=== PATIENT | female | born 1960 | race Caucasian/White ===

== ENCOUNTER 2022-10-14 08:35 | Outpatient (CLI) | payer OTHER, SELFPAY | END 2022-10-14 08:36 | disposition home or self-care (01) | LOC: NFLDREF 11:31 | PROVIDERS: PCP Internal Medicine; Referring Provider Internal Medicine; Visit Provider Internal Medicine | DX: I10 Essential (primary) hypertension (principal); E66.01 Morbid (severe) obesity due to excess calories; Z13.6 Encounter for screening for cardiovascular disorders | CPT/HCPCS: 80048; 80061 ==

== ENCOUNTER 2022-12-24 15:04 | Outpatient (CLI) | payer OTHER, SELFPAY ==
--- NOTE | 2022-12-24 15:20 | CRLHL7_ITS ---
For Patients: As a result of the Century Cures Act, medical imaging exams and procedure reports are released immediately into your electronic medical record. You may view this report before your referring provider. If you have questions, please contact your health care provider. BILATERAL SCREENING MAMMOGRAM WITH COMPUTER-AIDED DETECTION AND TOMOSYNTHESIS TECHNIQUE: CC and MLO views were obtained. These mammographic images have been obtained using full-field digital technique. These mammographic images were interpreted with the benefit of computer-aided detection. Breast Tomosynthesis was used in this interpretation. COMPARISON FILM: 08/28/15, 05/22/14. FINDINGS: The breasts are heterogeneously dense, which may obscure small masses IMPRESSION: There is no radiographic evidence for malignancy. ASSESSMENT: BI-RADS Category 1: Negative RECOMMENDATION: Routine screening mammogram in 1 year. A lay language report of this examination will be provided to the patient. Leobardo Méndez M.D. Diagnostic Radiologist [email or web address] Transcribed: 1:43 pm DW/Dictated by: Loebardo Méndez MD @ 12/25/2022 12:26:00 PM (Electronically Signed)
== END 2022-12-24 15:05 | disposition home or self-care (01) ==
LOC: MAMMO 15:05
PROVIDERS: PCP Internal Medicine; Visit Provider Internal Medicine
DX: Z12.31 Encounter for screening mammogram for malignant neoplasm of breast (principal); R92.2 Inconclusive mammogram
CPT/HCPCS: 77063; 77067

== ENCOUNTER 2022-12-31 13:45 | Outpatient (RCR) | payer OTHER, SELFPAY ==
--- NOTE | 2022-11-17 16:42 | PT.OPEX ---
Please sign the attached physical therapy evaluation completed on 11/17/22. Thank you. PT [place] [facility] Eval PT [facility] Outpatient Eval Start: 11/12/22 10:17 Freq: Status: Active Protocol: Document 11/17/22 11:20 TLQ (Rec: 11/17/22 14:44 TLQ [id number]) E-signed By Kelly Callahan DPT Physical Therapy Outpatient Evaluation Insurance Information Insurance Name [employer] [facility] Diagnosis Bilateral primary osteoarthritis of hip (M16.0) Treating Diagnosis Pain in left hip (M25.552) Pain in right hip (M25.551) Stiffness of right hip (M25. 651) Muscle weakness (M62.81) Referring MD Patricia Abbott MD Subjective Subjective Patient has been having bilateral hip pain for the past 7 years or so, right hip bothers her more than the left . States she walks a little lopsided, fell off a horse years ago which caused a curve in her spine, also has a previous ankle fracture on the right side which can sometimes result in her not bearing as much weight through it. Symptoms worsen with lifting, pulling, and bending. Navigates stairs using a step to pattern with her left foot leading, only has a few steps to get into her house from the garage. Notices she feels stiff when first standing up and walking after sitting down . Sometimes has some difficulty falling asleep, uses a CPAP so may not be entirely related to her hip pain. Has found some pain relief with use of Aleve. Goes to [facility] to use the pool , feels like she walks better when she leaves. Has considered getting shoe inserts. X-[facility] taken at [facility] on 10/16/22 with the following impression: Severe degenerative joint disease right hip. Moderately severe degenerative joint disease left hip. Pain Comments 2/10 average location: bilateral hips, R>L ease factors: Aleve aggravating factors: lifting, bending Current Work Status Retired Preferred Name Anusha Precautions Therapy Limitations/Systems Review Not Limited Objective Other/Pertinent Objective Trunk AROM: WFL with exception of lumbar extension Hip ROM: limited IR on the R Core/trunk strength: 4 flexion , 4+ extension Lower extremity strength: Hip: flexion L 4, R 4 mild pain extension L 4, R 4 abduction 4 B adduction 4+ B internal rotation L 4+, R 4 external rotation L 4-, R 4- mild pain TTP: R>L glute med/piriformis Joint mobility: hypomobility on R Gait: Trendelenburg, slower malia Special tests: DANNY (+) mobility restriction on L, mobility restriction and pain on R Manual LE distraction (+) positive response on R Supine to sit test: R anterior innominate rotation, corrected with MET Posture: increased lumbar lordosis Functional Test Performed & Score LEFS: score 43/80 (left 1 blank) (MCID 9 points) Assessment Assessment/Impression Patient is a 62 year old female who presents to outpatient physical therapy today to address bilateral hip pain related to osteoarthritic changes in her joints. Pain is more prominent in her right hip and limits her ability to complete bending, lifting, or carrying tasks. Pain is also present when navigating stairs, uses a step to pattern with her left leg used as the strong/ support leg. Mild core weakness and bilateral hip weakness present with strength testing. Hip mobility restrictions present with DANNY testing bilaterally, limited in internal rotation on the right. Postural observations included increased lumbar lordosis and LLD with right leg longer in supine, LLD was corrected using MET. Patient found partial relief with manual distraction of the right lower extremity. Muscle tightness present in the bilateral glute medius and piriformis muscles , tenderness improved with skilled STM/Tpr, patient was instructed through how to simulate this at home with use of a tennis ball while standing at the wall. Patient had a positive symptom response to initial interventions completed during today's evaluation. Patient attends the local senior center to complete aquatic exercises multiple times per week. She is expected to benefit from skilled interventions of manual therapy, therapeutic exercise, therapeutic activity, neuromuscular re-education, and gait training to reduce pain and meet her goals as outlined below. Primary Functional Limitations R hip mobility, core weakness, hip weakness, gait, stair navigation, bending, lifting/ carrying Plan of Care Rehabilitation Potential Good Physical Therapy Goals In 4-5 visits: - Patient will demonstrate ability to lift a 5# object and carry it 10 feet without symptom provocation. - Patient will adhere to her HEP in order to progress strength and mobility interventions. In 8-10 visits: - LEFS score will improve to > 52/80 (MCID 9 points) to demonstrate functional improvements daily mobility. - Patient will navigate 2 steps using a reciprocal pattern for improved stair navigation in/out of her house /garage. - Patient will demonstrate proper lifting mechanics to lift a 10# object and carry it 20 feet without symptom provocation. Treatment Plan/Direct Interventions Gait Training,Manual Therapy, Neuromuscular Re-ed,Self-Care/ Home Management,Therapeutic Activities,Therapeutic Exercises Frequency/Duration 1x/week for 8-10 weeks Patient Will Be Discharged From Therapy Completion of LTG(s),Skills Plateau,Independent w/HEP, Independently Progressing Evaluation Billing Untimed Code Treatment Minutes 35 Complexity Low Certification Information Provider Signature Shows Agreement With POC & Medical Necessity Physician Signature & Date Requested Please Sign/Date Here Physician Comment/Change : Physician NPI Number #
== END 2023-02-18 16:13 | disposition home or self-care (01) ==
PROVIDERS: PCP Internal Medicine; Visit Provider Internal Medicine
DX: M16.0 Bilateral primary osteoarthritis of hip (principal); Z51.89 Encounter for other specified aftercare
CPT/HCPCS: 97110; 97140; 97161

== ENCOUNTER 2024-05-04 08:19 | Outpatient (CLI) | payer MEDICARE, SELFPAY ==
[2024-05-06 01:55] LABS: HPV Source Cervical/Vag; HPV, High Risk by TMA Not Detected
== END 2024-05-04 08:20 | disposition home or self-care (01) ==
PROVIDERS: PCP Family Medicine; Visit Provider Family Medicine
DX: E78.5 Hyperlipidemia, unspecified (principal); I10 Essential (primary) hypertension; Z13.29 Encounter for screening for other suspected endocrine disorder; Z12.4 Encounter for screening for malignant neoplasm of cervix
CPT/HCPCS: 80053; 80061; 84443; 87624; 87625; 88141; 88142

== ENCOUNTER 2024-06-13 12:53 | Outpatient (CLI) | payer MEDICARE, SELFPAY ==
[2024-06-13 08:14] VITALS: BMI 43.2
== END 2024-06-13 12:54 | disposition home or self-care (01) ==
LOC: NUTRITION 12:54
PROVIDERS: PCP Family Medicine; Visit Provider Dietitian, Registered
DX: E66.9 Obesity, unspecified (principal); Z71.3 Dietary counseling and surveillance
CPT/HCPCS: G0463

== ENCOUNTER 2024-06-20 08:17 | Outpatient (CLI) | payer MEDICARE, SELFPAY ==
[2024-06-20 08:07] VITALS: BMI 42.9
== END 2024-06-20 08:18 | disposition home or self-care (01) ==
LOC: NUTRITION 08:19
PROVIDERS: PCP Family Medicine; Visit Provider Dietitian, Registered
DX: E66.9 Obesity, unspecified (principal); Z68.41 Body mass index [BMI] 40.0-44.9, adult; Z71.3 Dietary counseling and surveillance
CPT/HCPCS: G0463

== ENCOUNTER 2024-06-27 13:22 | Outpatient (CLI) | payer MEDICARE, SELFPAY ==
[2024-06-27 11:56] VITALS: BMI 42.3
== END 2024-06-27 13:23 | disposition home or self-care (01) ==
LOC: NUTRITION 13:22
PROVIDERS: PCP Family Medicine; Visit Provider Dietitian, Registered
DX: E66.9 Obesity, unspecified (principal); Z71.3 Dietary counseling and surveillance
CPT/HCPCS: G0463

== ENCOUNTER 2024-07-04 09:05 | Outpatient (CLI) | payer MEDICARE, SELFPAY ==
[2024-07-04 08:13] VITALS: BMI 42.3
== END 2024-07-04 09:06 | disposition home or self-care (01) ==
LOC: NUTRITION 09:05
PROVIDERS: PCP Family Medicine; Visit Provider Dietitian, Registered
DX: E66.9 Obesity, unspecified (principal); Z68.41 Body mass index [BMI] 40.0-44.9, adult; Z71.3 Dietary counseling and surveillance
CPT/HCPCS: G0463

== ENCOUNTER 2024-07-18 13:41 | Outpatient (CLI) | payer MEDICARE, SELFPAY ==
[2024-07-18 12:49] VITALS: BMI 42.2
== END 2024-07-18 13:42 | disposition home or self-care (01) ==
LOC: NUTRITION 13:41
PROVIDERS: PCP Family Medicine; Visit Provider Dietitian, Registered
DX: E66.9 Obesity, unspecified (principal); Z68.41 Body mass index [BMI] 40.0-44.9, adult; Z71.3 Dietary counseling and surveillance
CPT/HCPCS: G0463

== ENCOUNTER 2024-08-01 10:04 | Outpatient (CLI) | payer MEDICARE, SELFPAY ==
[2024-08-01 08:49] VITALS: BMI 41.2
== END 2024-08-01 10:05 | disposition home or self-care (01) ==
LOC: NUTRITION 10:04
PROVIDERS: PCP Family Medicine; Visit Provider Dietitian, Registered
DX: E66.9 Obesity, unspecified (principal); Z68.41 Body mass index [BMI] 40.0-44.9, adult; Z71.3 Dietary counseling and surveillance
CPT/HCPCS: G0463

== ENCOUNTER 2024-08-10 13:51 | Outpatient (CLI) | payer MEDICARE, SELFPAY ==
--- NOTE | 2024-08-10 14:00 | CRLHL7_ITS ---
For Patients: As a result of the Century Cures Act, medical imaging exams and procedure reports are released immediately into your electronic medical record. You may view this report before your referring provider. If you have questions, please contact your health care provider. DXA BONE MINERAL DENSITY STUDY Current height (in): 66. Weight (lb): 253. Menopause age: 43. Ethnicity: White. 1. Have you had a previous hip or vertebral fracture? Yes. 2. Have you had any fractures during your adult life which did not result from significant trauma (e.g., auto accident)? Yes. 3. Did either of your parents have a hip fracture? No. 4. Do you smoke? No. 5. Have you ever taken Glucocorticoids? No. 6. Do you have rheumatoid arthritis? Yes. 7. Do you have secondary osteoporosis? No. 8. Do you drink 3 or more alcoholic drinks per day? No. 9. Are you being treated for osteoporosis? No. 10. Have you ever taken any of the following medications: Actonel, Evista, Fosamax, Miacalcin, Reclast, Boniva, Forteo, HRT (i.e. estrogen/hormone therapy), Protelos, Prolia, Vitamin D, Calcium, other ??? please specify. No. 11. Do you have any of the following medical conditions: Anorexia or bulimia, asthma or emphysema, end stage renal disease, hyperparathyroidism, any seizure disorders, cancer, inflammatory bowel diseases, hysterectomy, other ??? please specify. No. 12. What was your maximum height (inches)? 66. 13. Do you perform weight bearing exercise regularly? Yes. 14. Do you regularly consume dairy products? Yes. 15. Do you drink caffeinated beverages? No. 16. At what age did your period start? 10. 17. Are you premenopausal? No. 18. How many full term pregnancies have you had? 0. 19. Have you ever missed your period for more than 6 months in a row (not including or menopause)? No. TECHNIQUE: Bone mineral density study was performed using the [employer]. FINDINGS: The results of the study expressed as bone mineral density (BMD) are as follows: Lumbar spine L1 to L4: BMD: 1.226 g/cm2. T-score: 1.6. Z-score: 3.5. Neck Left: BMD: 0.874 g/cm2. T-score: 0.2. Z-score: 1.8. Right: BMD: 0.819 g/cm2. T-score: -0.3. Z-score: 1.3. Total Left: BMD: 1.025 g/cm2. T-score: 0.7. Z-score: 2.0. Right: BMD: 0.980 g/cm2. T-score: 0.3. Z-score: 1.6. IMPRESSION: Normal bone density. Haris Valenzuela M.D. Diagnostic Radiologist [email or web address] SELENA/chris / DW/Dictated by: Haris Valenzuela MD @ 08/14/2024 7:37:00 AM (Electronically Signed)
--- NOTE | 2024-08-10 14:40 | CRLHL7_ITS ---
For Patients: As a result of the Century Cures Act, medical imaging exams and procedure reports are released immediately into your electronic medical record. You may view this report before your referring provider. If you have questions, please contact your health care provider. BILATERAL SCREENING MAMMOGRAM WITH COMPUTER-AIDED DETECTION AND TOMOSYNTHESIS TECHNIQUE: CC and MLO views were obtained. These mammographic images have been obtained using full-field digital technique. These mammographic images were interpreted with the benefit of computer-aided detection. Breast Tomosynthesis was used in this interpretation. COMPARISON FILM: 12/24/22, 08/28/15. FINDINGS: There are scattered areas of fibroglandular density. IMPRESSION: There is no radiographic evidence for malignancy. ASSESSMENT: BI-RADS Category 2: Benign RECOMMENDATION: Routine screening mammogram in 1 year. A lay language report of this examination will be provided to the patient. Leobardo Méndez M.D. Diagnostic Radiologist [email or web address] SP/Dictated by: Leobardo Méndez MD @ 08/16/2024 12:52:00 PM (Electronically Signed)
== END 2024-08-10 13:52 | disposition home or self-care (01) ==
LOC: RAD 13:52
PROVIDERS: PCP Family Medicine; Visit Provider Family Medicine
DX: Z12.31 Encounter for screening mammogram for malignant neoplasm of breast (principal); Z78.0 Asymptomatic menopausal state
CPT/HCPCS: 77063; 77067; 77080

== ENCOUNTER 2024-08-11 11:21 | Outpatient (CLI) | payer MEDICARE, SELFPAY ==
--- NOTE | 2024-08-11 13:03 | P.ANES_ITS ---
Anesthesia Charges Start Date/Time Anesthesia Start Date: 08/11/24 Anesthesia Start Time: 12:04 Stop Date/Time Anesthesia Stop Date: 08/11/24 Anesthesia Stop Time: 13:00 Coding CPT Codes CPT Codes: ANES LWR INTST NDSC NOS - 07455 ([id number]) P2 - PATIENT W/MILD SYST DISEASE, QZ - FREIGHT SOLICITOR SVC W/O RHIA BY
--- NOTE | 2024-08-11 13:03 | W.ANESCHARGE ---
Anesthesia Charges Start Date/Time Anesthesia Start Date: 08/11/24 Anesthesia Start Time: 12:04 Stop Date/Time Anesthesia Stop Date: 08/11/24 Anesthesia Stop Time: 13:00 Coding CPT Codes CPT Codes: ANES LWR INTST NDSC NOS - 98289 ([id number]) P2 - PATIENT W/MILD SYST DISEASE, QZ - BENCH WORKER APPRENTICE SVC W/O THREAD WINDER BY
== END 2024-08-11 11:22 | disposition home or self-care (01) ==
LOC: OP CLINIC 11:22
PROVIDERS: PCP Family Medicine; Visit Provider Surgery
DX: Z12.11 Encounter for screening for malignant neoplasm of colon (principal); D12.8 Benign neoplasm of rectum; Z83.719 Family history of colon polyps, unspecified
CPT/HCPCS: 00811; 45385; 88305; J2704

== ENCOUNTER 2024-09-19 13:07 | Outpatient (CLI) | payer MEDICARE, SELFPAY ==
[2024-09-19 07:20] VITALS: BMI 40.8
== END 2024-09-19 13:08 | disposition home or self-care (01) ==
LOC: NUTRITION 13:07
PROVIDERS: PCP Family Medicine; Visit Provider Dietitian, Registered
DX: E66.9 Obesity, unspecified (principal); Z68.41 Body mass index [BMI] 40.0-44.9, adult; Z71.3 Dietary counseling and surveillance
CPT/HCPCS: G0463

== ENCOUNTER 2024-10-05 08:05 | Outpatient (CLI) | payer MEDICARE, SELFPAY ==
[2024-10-05 09:41] VITALS: BMI 41.3
== END 2024-10-05 08:06 | disposition home or self-care (01) ==
LOC: NUTRITION 08:05
PROVIDERS: PCP Family Medicine; Visit Provider Dietitian, Registered
DX: E66.9 Obesity, unspecified (principal); Z68.41 Body mass index [BMI] 40.0-44.9, adult; Z71.3 Dietary counseling and surveillance
CPT/HCPCS: G0463

== ENCOUNTER 2024-10-24 10:31 | Outpatient (CLI) | payer MEDICARE, SELFPAY ==
[2024-10-24 08:55] VITALS: BMI 41.3
== END 2024-10-24 10:32 | disposition home or self-care (01) ==
LOC: NUTRITION 10:31
PROVIDERS: PCP Family Medicine; Visit Provider Dietitian, Registered
DX: E66.9 Obesity, unspecified (principal); Z68.41 Body mass index [BMI] 40.0-44.9, adult; Z71.3 Dietary counseling and surveillance
CPT/HCPCS: G0463

== ENCOUNTER 2024-11-30 11:05 | Outpatient (CLI) | payer MEDICARE, SELFPAY | END 2024-11-30 11:06 | disposition home or self-care (01) | LOC: NFLDREF 11:06 | PROVIDERS: PCP Family Medicine; Visit Provider Family Medicine | DX: S30.861A Insect bite (nonvenomous) of abdominal wall, initial encounter (principal); M25.50 Pain in unspecified joint | CPT/HCPCS: 86618 ==

== ENCOUNTER 2024-12-07 05:54 | Outpatient (CLI) | payer MEDICARE, SELFPAY ==
[2024-12-07 08:14] VITALS: BMI 40.1
== END 2024-12-07 05:55 | disposition home or self-care (01) ==
LOC: NUTRITION 05:54
PROVIDERS: PCP Family Medicine; Visit Provider Dietitian, Registered
DX: E66.9 Obesity, unspecified (principal); Z68.41 Body mass index [BMI] 40.0-44.9, adult; Z71.3 Dietary counseling and surveillance
CPT/HCPCS: G0463

== ENCOUNTER 2024-12-26 09:40 | Outpatient (CLI) | payer MEDICARE, SELFPAY | END 2024-12-26 09:41 | disposition home or self-care (01) | LOC: NFLDREF 12-30 22:49 | PROVIDERS: PCP Family Medicine; Referring Provider Family Medicine; Visit Provider Family Medicine | DX: E78.5 Hyperlipidemia, unspecified (principal); R73.03 Prediabetes; I10 Essential (primary) hypertension | CPT/HCPCS: 80053; 80061 ==

== ENCOUNTER 2025-02-13 07:46 | Outpatient (CLI) | payer MEDICARE, SELFPAY ==
--- NOTE | 2025-02-13 09:14 | P.ANES_ITS ---
Anesthesia Charges Start Date/Time Anesthesia Start Date: 02/13/25 Anesthesia Start Time: 08:45 Stop Date/Time Anesthesia Stop Date: 02/13/25 Anesthesia Stop Time: 09:11 Coding CPT Codes CPT Codes: ANES LWR INTST SCR COLSC - 57603 ([id number]) P3 - PATIENT W/SEVERE SYS DISEASE, QX - RESPIRATORY MANAGER SVC W/ MD MED DIRECTION, QK - CASE TECHNICIAN 2-4 CNCRNT ANES PROC
--- NOTE | 2025-02-13 09:14 | W.ANESCHARGE ---
Anesthesia Charges Start Date/Time Anesthesia Start Date: 02/13/25 Anesthesia Start Time: 08:45 Stop Date/Time Anesthesia Stop Date: 02/13/25 Anesthesia Stop Time: 09:11 Coding CPT Codes CPT Codes: ANES LWR INTST SCR COLSC - 92408 ([id number]) P3 - PATIENT W/SEVERE SYS DISEASE, QX - DIALYSIS CLINICAL MANAGER SVC W/ MD MED DIRECTION, QK - PORTABLE TRACK CREW CHIEF 2-4 CNCRNT ANES PROC
--- NOTE | 2025-02-13 11:56 | P.ANES_ITS ---
Anesthesia Charges Start Date/Time Anesthesia Start Date: 02/13/25 Anesthesia Start Time: 08:45 Stop Date/Time Anesthesia Stop Date: 02/13/25 Anesthesia Stop Time: 09:11 Coding CPT Codes CPT Codes: ANES LWR INTST SCR COLSC - 16760 ([id number]) QK - BUTCHER APPRENTICE 2-4 CNCRNT ANES PROC, QX - PRESS MANAGER SVC W/ MED DIRECTION, P3 - PATIENT W/SEVERE SYS DISEASE
--- NOTE | 2025-02-13 11:56 | W.ANESCHARGE ---
Anesthesia Charges Start Date/Time Anesthesia Start Date: 02/13/25 Anesthesia Start Time: 08:45 Stop Date/Time Anesthesia Stop Date: 02/13/25 Anesthesia Stop Time: 09:11 Coding CPT Codes CPT Codes: ANES LWR INTST SCR COLSC - 09045 ([id number]) QK - AVIONICS SYSTEMS REPAIRER 2-4 CNCRNT ANES PROC, QX - HIP HOP DANCE INSTRUCTOR SVC W/ MED DIRECTION, P3 - PATIENT W/SEVERE SYS DISEASE
== END 2025-02-13 07:47 | disposition home or self-care (01) ==
LOC: OP CLINIC 07:46
PROVIDERS: PCP Family Medicine; Visit Provider Internal Medicine
DX: Z12.11 Encounter for screening for malignant neoplasm of colon (principal); Z86.0100 Personal history of colon polyps, unspecified; K64.8 Other hemorrhoids; K57.30 Diverticulosis of large intestine without perforation or abscess without bleeding
CPT/HCPCS: 00812; 45378; J2704

== ENCOUNTER 2025-03-09 09:28 | Outpatient (CLI) | payer MEDICARE, SELFPAY | END 2025-03-09 09:29 | disposition home or self-care (01) | LOC: NFLDREF 09:29 | PROVIDERS: PCP Family Medicine; Visit Provider Family Medicine | DX: I10 Essential (primary) hypertension (principal) | CPT/HCPCS: 80048; 80061 ==

== ENCOUNTER 2025-03-20 08:34 | Day surgery (SDC) | payer MEDICARE, SELFPAY ==
[2025-03-20] VITALS (23 sets, daily range): BP systolic 93–147; BP diastolic 45–80; PULSE 57–80; RESP 14–18; TEMP 36–36.8; O2SAT 92–100; BMI 40.4
[2025-03-20] MEDS: LACTATED RINGERS 1000 ML 1,000 ML 100 ML IV ×3 (09:00→14:10)
[2025-03-20] MEDS: OXYCODONE (CR) 10 MG TAB.ER.12H PO (09:00)
[2025-03-20] MEDS: ACETAMINOPHEN 500 MG TABLET 1000 MG PO ×3 (09:00→21:19)
--- NOTE | 2025-03-20 09:11 | W.PM.H&PU ---
History & Physical Update History & Physical Update H&P Reviewed and patient assessed: No changes noted
--- NOTE | 2025-03-20 09:14 | CRLHL7_ITS ---
For Patients: As a result of the Cures Act, medical imaging exams and procedure reports are released immediately into your electronic medical record. You may view this report before your referring provider. If you have questions, please contact your health care provider. Indication: Post op right HARVEY Technique: AP tip centered pelvis and lateral view right hip Findings/Impression: Hardware from a right total hip arthroplasty is in satisfactory position. Bone alignment is normal. No sign of acute fracture. Postop changes are within normal limits. Dictated by Leobardo Méndez MD @ 03/20/2025 2:43:26 PM (Electronically Signed)
[2025-03-20] MEDS: SODIUM CHLORIDE 0.9 % (FLUSH) 10 ML SYRINGE IVF (09:21)
[2025-03-20] MEDS: MIDAZOLAM HCL 1 MG/ML inj IVP (10:25)
--- NOTE | 2025-03-20 10:39 | SUR.PREOP ---
TIME?OUT:?1025 PT/ami medeiros RN/devin silvestre MDA?VERIFICATION?OF?SURGICAL?SITE,?PROCEDURE,?AND?CONSENT OBTAINED?PRIOR?TO?INVASIVE?PROCEDURE.
[2025-03-20] MEDS: TRANEXAMIC ACID 100 MG/ML INJ 1000 MG IV (10:50)
--- NOTE | 2025-03-20 11:03 | CRLHL7_ITS ---
For Patients: As a result of the Cures Act, medical imaging exams and procedure reports are released immediately into your electronic medical record. You may view this report before your referring provider. If you have questions, please contact your health care provider. Indication: Hip replacement surgery Technique: AP hip fluoroscopic image. Fluoroscopy time 40.7 seconds. Findings/Impression: Hardware from a right total hip arthroplasty is in satisfactory position. Dictated by Leobardo Méndez MD @ 03/20/2025 2:47:25 PM (Electronically Signed)
--- NOTE | 2025-03-20 11:25 | SUR.OPER ---
PATIENT QUESTIONS ANSWERED SATISFACTORILY PREOPERATIVELY. PATIENT BROUGHT TO OR #2 PER CART AFTER ADMINISTRATION OF A BLOCK. Patient positioned supine on OR #2 bed. The perioperative team supported arms bilaterally on arm boards. Final approval of positioning by surgeon.
--- NOTE | 2025-03-20 13:08 | PM.ORPRC ---
Procedure Note Date of procedure: 03/20/25 Procedure: PREOPERATIVE DIAGNOSIS: 1. Right hip osteoarthritis, severe, primary POSTOPERATIVE DIAGNOSIS: 1. Right hip osteoarthritis, severe, primary PROCEDURE: 1. Right total hip arthroplasty-anterior approach 2. 84140 - intraoperative fluoroscopy up to 1 hour. SURGEON: Mitch Roberts MD. DIRECTOR TELEVISION: Basilio Campbell PA-C; JAE Caceres - Of note, a skilled insurance account assistant was critical for this case to aid in patient positioning, tissue retraction, limb manipulation/positioning, and closure. ANESTHESIA: General endotracheal anesthetic EBL: 350 mL IMPLANTS: DePuy J&J uncemented total hip Capulin cup size 52, hole eliminator, +4 neutral liner Actis stem, standard offset, size 3 +8.5 mm ceramic 36 mm head COMPLICATIONS: None evident INDICATIONS: The patient is a pleasant 64-year-old female who has experienced severe right hip pain and difficulty bearing weight. Workup included x-rays which revealed severe osteoarthrosis in the hip. Given the deformity, the dysfunction, and the pain, as well as the failure of nonoperative management, recommendation was made for surgery. FINDINGS: Full-thickness chondral loss diffusely throughout the femoral head and conical shaped femoral head due to erosive changes. Osteophytosis around the femoral head/neck junction and perimeter of the acetabulum. Large effusion upon entering the joint. DESCRIPTION OF PROCEDURE: Following a thorough discussion of risks, benefits, and alternatives consent was obtained and the right hip was marked. The patient was brought to the operating room and placed supine on the operating table. Induction of anesthesia was undertaken. 2 g IV Ancef and 1 g tranexamic acid was administered within 1 hr of incision preoperatively. Proper time-out was performed identifying proper patient, site, procedure. The operative extremity was prepped and draped in the appropriate sterile fashion using ChloraPrep after the patient was positioned on the Parsons table with head in neutral alignment and all bony prominences well padded. C-arm fluoroscopic imaging was utilized to confirm proper pelvis rotation and position, and to get true AP films of both the contralateral left, and the affected right hip. This is for comparison. A longitudinal incision was made starting approximately 1 cm distal to the ASIS, and 2-3 cm lateral. The incision was extended distally aiming toward the fibular head. Sharp incision through skin and bovie cautery through the subcutaneous tissue allowed identification of the TFL fascia. This was sharply divided, and the fascia bluntly released from the muscle fibers as we dissected medial. Upon coming to the medial border, we were able to retract the TFL laterally, and penetrated the deeper fascia and identify the crossing circumflex vessels. These were ligated/cauterized. The rectus was elevated from the capsule, and retractors placed laterally and medially along the femoral neck to help with visualization of the capsule. We then performed an inverted T capsulotomy. The capsule was tagged for later repair. Retractors were placed inside the capsule. The femoral neck was visualized after releasing medially down to the lesser trochanter, along the saddle laterally, and up onto the acetabulum. The femoral neck cut was made in line with our preoperative templating. The head was removed in a single piece, and sized. We turned our attention to acetabular preparation. Initially, the labrum was resected from around the perimeter, the pulvinar was excised, allowing us to visualize the false wall. We started the reaming with a 43 mm reamer. This was medialized down to the true wall. We then enlarged our reamers sequentially up to one size less than the selected cup size. We trialed at the same size and found it to have an excellent fit. The selected cup was then opened, inserted, and impacted in line with the goal of 40? of abduction, and 20-25? of anteversion. This was confirmed on C-arm fluoroscopic imaging to be in the appropriate/goal position. Once the cup was placed we placed a hole eliminator and a liner consistent with preop planning. Attention was turned to the femoral preparation. The limb was extended, externally rotated, and adducted. The posteromedial capsule was released, as retractors were placed allowing excellent access to the proximal femur. Initially a gill box tender was followed by canal finder followed by various broaches. We broached sequentially up to the size noted above, found it to have excellent rotational control, and trialing various heads and necks, revealed that appropriate neck offset, and the above noted head size provided the greatest stability, and jehovah's witness of length, and offset. C-arm fluoroscopic imaging confirmed position of the stem, as well as leg lengths, which were compared with the pre procedure all fluoroscopic images. Trial implants were removed, the real femoral stem inserted, as was the appropriate head. After reducing, the leg was placed through range of motion and stability was confirmed anterior, posterior, and lateral. A 3 min Betadine soak was then performed, and thorough irrigation with normal saline followed. Closure of the capsule was performed with #1 PDS. Bleeding was confirmed to be controlled at this stage, and the TFL fascia was closed with #0 strata fix. Subcutaneous, and subcuticular closure was performed with 2-0 Stratafix and 4-0 Stratafix, respectively. Dressings were applied, and the patient was awoken from anesthesia and transferred the PACU in stable condition. A skilled insurance account assistant was critical for this case to aid in patient positioning, tissue retraction, acetabular and proximal femoral exposure, limb manipulation/positioning, dislocation/relocation, patient safety, and closure. PLAN: 1. Weight bear as tolerated operative extremity. 2. 23 hr perioperative antibiotics. 3. Ice. 4. PT/OT consults for ambulation assistance/mobility education. 5. Social work consult for discharge planning. 6. DVT prophylaxis with at SCDs and Xarelto x5 days followed by aspirin for a total of 1 month.
--- NOTE | 2025-03-20 13:43 | P.ANES_ITS ---
Anesthesia Charges Start Date/Time Anesthesia Start Date: 03/20/25 Anesthesia Start Time: 10:37 Stop Date/Time Anesthesia Stop Date: 03/20/25 Anesthesia Stop Time: 13:35 Coding CPT Codes CPT Codes: ANESTH HIP ARTHROPLASTY - 25685 ([id number]) P3 - PATIENT W/SEVERE SYS DISEASE, QK - HALL TENDER 2-4 CNCRNT ANES PROC, QX - FOOD BEVERAGE SERVER SVC W/ MD MED DIRECTION
--- NOTE | 2025-03-20 13:43 | W.ANESCHARGE ---
Anesthesia Charges Start Date/Time Anesthesia Start Date: 03/20/25 Anesthesia Start Time: 10:37 Stop Date/Time Anesthesia Stop Date: 03/20/25 Anesthesia Stop Time: 13:35 Coding CPT Codes CPT Codes: ANESTH HIP ARTHROPLASTY - 76996 ([id number]) P3 - PATIENT W/SEVERE SYS DISEASE, QK - STRANDING SUPERVISOR 2-4 CNCRNT ANES PROC, QX - LIVESTOCK HANDLER SVC W/ MD MED DIRECTION
[2025-03-20] MEDS: ONDANSETRON 2 MG/ML inj 4 MG IVP (14:44)
--- NOTE | 2025-03-20 14:56 | P.ANES_ITS ---
Anesthesia Charges Start Date/Time Anesthesia Start Date: 03/20/25 Anesthesia Start Time: 10:37 Stop Date/Time Anesthesia Stop Date: 03/20/25 Anesthesia Stop Time: 13:35 Coding CPT Codes CPT Codes: ANESTH HIP ARTHROPLASTY - 32568 ([id number]) QK - SUPPLIER MANAGER 2-4 CNCRNT ANES PROC, QX - RN COMPLEX CARE SVC W/ MD MED DIRECTION, P3 - PATIENT W/SEVERE SYS DISEASE
--- NOTE | 2025-03-20 14:56 | W.ANESCHARGE ---
Anesthesia Charges Start Date/Time Anesthesia Start Date: 03/20/25 Anesthesia Start Time: 10:37 Stop Date/Time Anesthesia Stop Date: 03/20/25 Anesthesia Stop Time: 13:35 Coding CPT Codes CPT Codes: ANESTH HIP ARTHROPLASTY - 63412 ([id number]) QK - MEDICINE WORKER 2-4 CNCRNT ANES PROC, QX - STAFF SUBMARINE WARFARE OFFICER SVC W/ MD MED DIRECTION, P3 - PATIENT W/SEVERE SYS DISEASE
--- NOTE | 2025-03-20 14:57 | W.PM.NB ---
Nerve Block Nerve Block Time Seen by Provider: 10:30 Date Seen: 03/20/25 Type of block requested by surgeon for post-operative analgesia: BEATA/LFCN Side: right Time out performed: Yes Verification of patient name: Yes Verification of date of : Yes Site marking: site marked Name of person performing procedure: Dieter Continuous monitoring Was continuous monitoring of O2 sat, B/P, vehicle monitor technician, recorded every 15 minutes?: Yes Procedure Checklist: sterile prep, needles and gloves Ultrasound guided. Images saved: Yes Medications given in 5ml increments after negative aspiration: Ropivicaine %: 0.5 mL: 30 Needle gauge: 20 Precedex (mcg): 25 Patient tolerated procedure well: Yes Additional comments: Needle noted below psoas tendon needle noted adjacent to LFCN Block Charges Block Charge (with Pro Fee): Other Periph Nerve Block Use of Ultrasound Machine for Block: Yes- US Guidance/pain block
--- NOTE | 2025-03-20 15:35 | PM.IMCN1 ---
Date of Consult Patient: [facility] Patient Consult date: 03/20/25 Requesting Physician: Orthopedics Primary Care Provider: Zuly Hassan MD Consult Narrative Reason for consult: Medical management Narrative: Abida Barth is a 64 year old female past medical history significant for hypertension, hyperlipidemia, MYA not using CPAP, obesity, OA is POD#0 s/p right total hip arthroplasty, Dr. Mike. There have been no perioperative complications or nursing concerns reported. Estimated total blood loss documented as 350ml. Updated and reviewed the active medical problems, past medical history, past surgical history, social history, allergies and medications in our electronic EMR. Postoperatively, patient remains a bit sleepy. Really no appetite yet. Has been tolerating sips of water without nausea vomiting. Pain is currently adequately managed. Systolics just above 100 postoperatively. Review of Systems Narrative: REVIEW OF SYSTEMS: Complete review of systems performed and negative unless otherwise stated in HPI or below. PFSH PFSH Medical History Obstructive sleep apnea syndrome ?G47.33 - Obstructive sleep apnea (adult) (pediatric) (ICD-10) Essential hypertension ?I10 - Essential (primary) hypertension (ICD-10) Tooth infection ?K04.7 - Periapical abscess without sinus (ICD-10) Prediabetes (05/04/24) ?R73.03 - Prediabetes (ICD-10) History of bone density study (08/16/24) ?Z92.89 - Personal history of other medical treatment (ICD-10) Morbid obesity with body mass index (BMI) of 40.0 or higher ?E66.01 - Morbid (severe) obesity due to excess calories (ICD-10) Dyslipidemia ?E78.5 - Hyperlipidemia, unspecified (ICD-10) Surgical History History of total right hip replacement (03/20/25) ?Z96.641 - Presence of right artificial hip joint (ICD-10) History of oral surgery (2022) ?Z98.890 - Other specified postprocedural states (ICD-10) Status post hysteroscopy (2014) ?Z98.890 - Other specified postprocedural states (ICD-10) Family History Paternal Grandfather Myocardial infarction, Onset Age: 55 Paternal Grandmother Myocardial infarction, Onset Age: 62 Brother H/O heart artery stent, Onset Age: 68 Brother History of heart valve repair, Onset Age: 65 Aunt Breast cancer, Onset Age: 58 Father Pancreatic cancer, Onset Age: 62 Maternal Grandmother Diabetes Alzheimer dementia Sister Parkinson's disease Social History Narrative: Single never , 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 [employer], no children Exercises by pool therapy 90 minutes 5 to 6 times a week Lifetime nonsmoker Rare alcohol use What is your current living situation?: I presently have a place to live Problems where you live: declined to answer In the past 12 months, utilities in danger of being shut off: no In past 12 months, lack of transportation kept you from medical appts, meetings, work, or getting things needed for daily living: no In the past 12 mos, have been you worried that your food would run out before you had money to buy more?: never true In the past 12 mos, the food you bought just didn't last and you didn't have money to buy more?: never true Smoking Status: Never smoker How often do you have a drink containing alcohol: monthly or less AUDIT-C Alcohol total score: 1 Non-prescribed substance use: denies use Caffeine: Yes How often does anyone, including family, friends and others, physically hurt you: never How often does anyone, including family, friends and others, insult or talk down to you: rarely How often does anyone, including family, friends and others, threaten you with harm: never How often does anyone, including family, friends and others, scream or curse at you: never Health Related Social Needs: Other personal risk factors, not elsewhere classified (Z91.89) Meds Home Medications and Allergies Home Medications ?Medication ?Instructions ?Recorded ?Confirmed ?Type lisinopril 10 mg tablet 10 mg PO QDAY #90 tabs 07/06/24 03/20/25 Rx psyllium husk 0.4 gram capsule 0.4 g PO QDAY 03/09/25 03/20/25 History (Daily Fiber) rosuvastatin 5 mg tablet 5 mg PO QDAY #90 tabs 03/09/25 03/20/25 Rx Allergies Allergy/AdvReac Type Severity Reaction Status Date / Time No Known Drug Allergies Allergy Verified 03/20/25 09:05 Exam Narrative: Exam Narrative: PHYSICAL EXAM General: Pleasant, conversant, NAD HEENT: Normocephalic, atraumatic, sclera white, EOMI, oral mucosa moist Cardiovascular: RRR, S1S2. No pitting edema Pulmonary: CTA bilaterally without rhonchi, rales, expiratory wheezes. No dyspnea Neurological: Alert, answering questions appropriately, cranial nerves intact, no focal findings Extremities: No gross joint deformity or swelling. Postoperative dressing in place, dry. Neurovascularly intact Skin: Warm, dry. Const: Vital Signs, click to edit/add: Vital Signs - 24 hr 03/20/25 09:07 03/20/25 10:25 03/20/25 10:30 Temperature 97.9 F Pulse Rate 79 68 67 Pulse Rate [Pulse Oximeter] Respiratory Rate 16 16 16 Blood Pressure 147/70 H 143/80 H 134/61 Blood Pressure [Ri ght Arm] Pulse Oximetry 98 97 98 Oxygen Delivery Me thod Room Air Nasal Cannula Nasal Cannula Oxygen Flow Rate 3 3 03/20/25 13:31 03/20/25 13:40 03/20/25 13:45 Temperature 97.9 F Pulse Rate 71 67 66 Pulse Rate [Pulse Oximeter] Respiratory Rate 16 16 14 Blood Pressure 101/57 L 110/66 103/66 Blood Pressure [Ri ght Arm] Pulse Oximetry 94 92 97 Oxygen Delivery Me thod Nasal Cannula Nasal Cannula Nasal Cannula Oxygen Flow Rate 3 3 3 03/20/25 13:50 03/20/25 13:55 03/20/25 14:00 Temperature 97.3 F L Pulse Rate 63 62 64 Pulse Rate [Pulse Oximeter] Respiratory Rate 14 14 14 Blood Pressure 109/62 106/58 L 114/62 Blood Pressure [Ri ght Arm] Pulse Oximetry 97 98 100 Oxygen Delivery Me thod Nasal Cannula Nasal Cannula Room Air Oxygen Flow Rate 3 3 03/20/25 14:05 03/20/25 14:28 03/20/25 14:43 Temperature 97.5 F L 96.8 F L Pulse Rate 65 Pulse Rate [Pulse Oximeter] 57 L 64 Respiratory Rate 14 16 16 Blood Pressure 109/68 Blood Pressure [Ri ght Arm] 110/62 93/45 L Pulse Oximetry 98 94 94 Oxygen Delivery Me thod Room Air Room Air Room Air Oxygen Flow Rate 3 03/20/25 14:58 03/20/25 15:00 03/20/25 15:13 Temperature 96.8 F L 96.8 F L Pulse Rate Pulse Rate [Pulse Oximeter] 62 58 L Respiratory Rate 16 16 Blood Pressure Blood Pressure [Ri ght Arm] 109/60 102/55 L Pulse Oximetry 95 96 96 Oxygen Delivery Me thod Room Air Room Air Room Air Oxygen Flow Rate Assessment and Plan Assessment and plan (1) Osteoarthritis of right hip: Problem comment: -POD#0 s/p right total hip arthroplasty, Dr. Roberts -perioperative management including pain management and anticoagulation per Orthopedic surgery -encourage postoperative pulmonary hygiene (h/o MYA not using CPAP) -PT OT consults -plan to discharge home with friend (retired orthopedic nurse) tomorrow Status: Acute (2) Dyslipidemia: Problem comment: Resume statin on discharge Status: Chronic (3) Essential hypertension: Problem comment: Resume lisinopril on discharge. Systolics postoperatively < 110. Status: Chronic Plan May resume home medications upon discharge. Consider antihypertensives in the morning if necessary. Hospital medicine team will sign off. Please contact our service with any questions or concerns. Total Time Spent Total Time Spent: Today I spent 55 minutes seeing the patient, reviewing Expanse and EPIC notes/diagnostics, discussing the care plan with our care time that includes social work, PT/OT, pharmacy, RT, penitentiary and documenting my impressions and plan in the medical record.
[2025-03-20] MEDS: CEFAZOLIN 2 GM in 0.9 % SODIUM CHLORIDE Mini-bag 100 ML IVPB (17:24)
[2025-03-20] MEDS: SENNOSIDES 1 TAB TABLET 2 TAB PO (21:20)
[2025-03-21] MEDS: CEFAZOLIN 2 GM in 0.9 % SODIUM CHLORIDE Mini-bag 100 ML IVPB (00:59)
[2025-03-21 03:00] VITALS: BP 130/61; PULSE 80; RESP 18; TEMP 36.3; O2SAT 98
[2025-03-21] MEDS: ACETAMINOPHEN 500 MG TABLET 1000 MG PO ×2 (04:19→11:11)
--- NOTE | 2025-03-21 06:00 | PC.NURSE ---
End of shift report: VSS. Afebrile. Denies nausea. R hip dressing is C/D/I. Tolerating regular diet. Ambulates 1A, GB, W. On RA overnight, home CPAP was not utilized per RT recommendations due to the condition of the CPAP. Pt rates pain from 1-5/10, prn pain meds offered and given with relief. Bed alarm on, call light within reach. ?
[2025-03-21 08:04] VITALS: BP 135/53; PULSE 92; RESP 18; TEMP 36.9; O2SAT 96
[2025-03-21] MEDS: SENNOSIDES 1 TAB TABLET 2 TAB PO (08:40)
[2025-03-21] MEDS: RIVAROXABAN 10 MG TABLET PO (08:41)
[2025-03-21 08:45] VITALS: RESP 18; O2SAT 96
[2025-03-21 11:17] VITALS: BP 137/56; PULSE 94; RESP 18; TEMP 37; O2SAT 96
--- NOTE | 2025-03-21 11:43 | P.ORPN_ITS ---
Subjective Subjective Date Seen: 03/21/25 Principal diagnosis: Status postop day 1, right total hip arthroplasty - anterior approach Interval history: Patient reports doing okay. No acute events over night. Reporting some discomfort to her right lower back and muscle see the thigh hamstring, which she is massaging. Pain managed with scheduled and PRN medications, ice. DVT prophylaxis: Rivaroxaban for 5 days, followed by 81 mg aspirin by mouth twice daily 25 days, SCDs, walking. Denies fevers, chills, aches, N/V, CP, SOB/VELAZQUEZ. Comments being a little bit dizzy during breakfast this morning, which comes 20- 30 minutes after oxycodone administration. Ortho Exam Narrative Exam Narrative: -Patient appears comfortable in recliner; no apparent acute distress. A friend of the patient's is present. -Alert and oriented times 3 -Operative hip swollen; soft tissues supple; no obvious erythema. No obvious ecchymosis. Warmth appropriate -Surgical dressing clean, dry, intact; no obvious drainage, no erythematous streaking peripheral to the bandage. Some of the lower bandage adhesive is coming off. -Bilateral calves soft and supple; no significant swelling, edema, tenderness, erythema, discoloration, warmth, or palpable cords -2+ DP/PT pulses, intact dermatomes and myotomes distally (5/5 strength). No numbness about the lateral femoral cutaneous nerve distribution. Const Vital Signs, click to edit/add: Vital Signs - 24 hr 03/20/25 13:31 03/20/25 13:40 03/20/25 13:45 Temperature 97.9 F Pulse Rate 71 67 66 Pulse Rate [Pulse Oximeter] Respiratory Rate 16 16 14 Blood Pressure 101/57 L 110/66 103/66 Blood Pressure [Right Arm] Pulse Oximetry 94 92 97 Oxygen Delivery Method Nasal Cannula Nasal Cannula Nasal Cannula Oxygen Flow Rate 3 3 3 03/20/25 13:50 03/20/25 13:55 03/20/25 14:00 Temperature 97.3 F L Pulse Rate 63 62 64 Pulse Rate [Pulse Oximeter] Respiratory Rate 14 14 14 Blood Pressure 109/62 106/58 L 114/62 Blood Pressure [Right Arm] Pulse Oximetry 97 98 100 Oxygen Delivery Method Nasal Cannula Nasal Cannula Room Air Oxygen Flow Rate 3 3 03/20/25 14:05 03/20/25 14:28 03/20/25 14:43 Temperature 97.5 F L 96.8 F L Pulse Rate 65 Pulse Rate [Pulse Oximeter] 57 L 64 Respiratory Rate 14 16 16 Blood Pressure 109/68 Blood Pressure [Right Arm] 110/62 93/45 L Pulse Oximetry 98 94 94 Oxygen Delivery Method Room Air Room Air Room Air Oxygen Flow Rate 3 03/20/25 14:58 03/20/25 15:00 03/20/25 15:13 Temperature 96.8 F L 96.8 F L Pulse Rate Pulse Rate [Pulse Oximeter] 62 58 L Respiratory Rate 16 16 Blood Pressure Blood Pressure [Right Arm] 109/60 102/55 L Pulse Oximetry 95 96 96 Oxygen Delivery Method Room Air Room Air Room Air Oxygen Flow Rate 03/20/25 15:43 03/20/25 16:13 03/20/25 17:13 Temperature 97.2 F L 97.4 F L 97.4 F L Pulse Rate Pulse Rate [Pulse Oximeter] 68 65 72 Respiratory Rate 16 16 16 Blood Pressure Blood Pressure [Right Arm] 93/56 L 100/55 L 103/55 L Pulse Oximetry 94 95 98 Oxygen Delivery Method Room Air Room Air Room Air Oxygen Flow Rate 03/20/25 18:13 03/20/25 20:13 03/20/25 20:30 Temperature 97.4 F L 98.2 F 98.3 F Pulse Rate Pulse Rate [Pulse Oximeter] 70 78 80 Respiratory Rate 16 16 18 Blood Pressure Blood Pressure [Right Arm] 110/60 109/63 129/62 Pulse Oximetry 99 95 94 Oxygen Delivery Method Room Air Room Air Room Air Oxygen Flow Rate 03/20/25 22:48 03/20/25 22:51 03/20/25 22:51 Temperature 98.3 F Pulse Rate Pulse Rate [Pulse Oximeter] 80 80 Respiratory Rate 18 18 18 Blood Pressure Blood Pressure [Right Arm] 129/62 Pulse Oximetry 94 94 Oxygen Delivery Method Room Air Room Air Oxygen Flow Rate 03/21/25 03:00 03/21/25 08:04 03/21/25 08:45 Temperature 97.4 F L 98.4 F Pulse Rate Pulse Rate [Pulse Oximeter] 80 92 Respiratory Rate 18 18 18 Blood Pressure Blood Pressure [Right Arm] 130/61 135/53 L Pulse Oximetry 98 96 96 Oxygen Delivery Method Room Air Room Air Room Air Oxygen Flow Rate 3 03/21/25 11:17 Temperature 98.6 F Pulse Rate Pulse Rate [Pulse Oximeter] 94 Respiratory Rate 18 Blood Pressure Blood Pressure [Right Arm] 137/56 L Pulse Oximetry 96 Oxygen Delivery Method Room Air Oxygen Flow Rate Assessment and Plan Assessment and plan (1) Osteoarthritis of right hip: Problem details: -POD#1 s/p right total hip arthroplasty, Dr. Roberts -perioperative management including pain management and anticoagulation per Orthopedic surgery -encourage postoperative pulmonary hygiene (h/o MYA not using CPAP) -PT OT consults -plan to discharge home with friend (retired orthopedic nurse) tomorrow Status: Acute (2) Dyslipidemia: Problem details: Resume statin on discharge Status: Chronic (3) Essential hypertension: Problem details: Resume lisinopril on discharge. Systolics postoperatively < 110. Status: Chronic Plan - Complete 23 hour perioperative antibiotics. - PT/OT consult for education and assistance. - Social work consult for discharge planning - Prescribed analgesics as needed - DVT prophylaxis: 5 days rivaroxaban, followed by 25 days 81 mg aspirin by mouth twice daily, walking, and SCDs - Anticipation is for discharge to home with friend today 03/21/2025 if the patient remains medically stable, pain is controlled, and they are safe with mobilization.
--- NOTE | 2025-03-21 13:10 | PC.NURSE ---
Pt discharged @ 1305, via wheelchair. Accompanied by friend, going back to home. Dressing remains CDI. Active ice sent home with patient. Pain and nausea controlled. Pt reports understanding of discharge instructions. All forms signed. IV removed. Final room check complete.
== END 2025-03-21 13:05 | disposition home or self-care (01) ==
LOC: OR 08:35 → MEDSURG 08:36
PROVIDERS: PCP Family Medicine; Visit Provider Orthopaedic Surgery Sports Medicine
PROC: (CPT 27130; principal; 2025-03-20 11:00)
DX: M16.11 Unilateral primary osteoarthritis, right hip (principal); G89.18 Other acute postprocedural pain; G47.33 Obstructive sleep apnea (adult) (pediatric); I10 Essential (primary) hypertension; E66.01 Morbid (severe) obesity due to excess calories; R73.03 Prediabetes; E78.5 Hyperlipidemia, unspecified; Z91.89 Other specified personal risk factors, not elsewhere classified; Z68.41 Body mass index [BMI] 40.0-44.9, adult
CPT/HCPCS: 27130; 01214; 36415; 64450; 73501; 76942; 86850; 86900; 86901; 97110; 97116; 97162; 97165; 97535; A9270; C1776; J0330; J0690; J1100; J1171; J2250; J2371; J2405; J2704; J2795; J3010; J3490; J7120